=== PATIENT | female | born 1965 | race Native Hawaiian/Other Pacific Islander ===

== ENCOUNTER 2016-07-11 11:04 | Outpatient (CLI) | payer BC | END 2016-07-11 12:04 | disposition home or self-care (01) | LOC: LABW 11:04 | DX: E03.4 Atrophy of thyroid (acquired) (principal) | CPT/HCPCS: 36415; 84439; 84443 ==

== ENCOUNTER 2016-11-09 07:51 | Outpatient (CLI) | payer BC | END 2016-11-09 19:41 | disposition home or self-care (01) | LOC: LABW 07:51 | DX: E03.4 Atrophy of thyroid (acquired) (principal); I10 Essential (primary) hypertension | CPT/HCPCS: 36415; 84439; 84443 ==

== ENCOUNTER 2017-11-16 09:37 | Outpatient (CLI) | payer BC | END 2017-11-16 23:12 | disposition home or self-care (01) | LOC: LABW 09:37 | DX: I10 Essential (primary) hypertension (principal); E03.4 Atrophy of thyroid (acquired); Z78.0 Asymptomatic menopausal state; E78.2 Mixed hyperlipidemia; E66.09 Other obesity due to excess calories | CPT/HCPCS: 36415; 84439; 84443 ==

== ENCOUNTER → 2020-02-27 | Outpatient (CLI) | payer BC | LOC: MAMMO 09:28 | PROVIDERS: ATTEND Family Medicine | DX: N63.20 Unspecified lump in the left breast, unspecified quadrant (principal) | CPT/HCPCS: G0279 ==

== ENCOUNTER 2021-07-29 07:50 | Outpatient (CLI) | payer BC | END 2021-07-29 19:07 | disposition home or self-care (01) | LOC: MAMMO 07:50 | PROVIDERS: ATTEND Internal Medicine | DX: Z12.31 Encounter for screening mammogram for malignant neoplasm of breast (principal) ==

== ENCOUNTER 2022-08-01 08:50 | Outpatient (CLI) | payer BC | END 2022-08-01 18:57 | disposition home or self-care (01) | LOC: MAMMO 08:50 | PROVIDERS: ATTEND Family Medicine | DX: Z12.31 Encounter for screening mammogram for malignant neoplasm of breast (principal); Z13.820 Encounter for screening for osteoporosis ==